=== PATIENT | male | born 1980 | race Caucasian/White ===

== ENCOUNTER 2024-08-31 17:22 | Emergency (ER) | payer BC, SELFPAY ==
--- NOTE | ~2024-08-31 | XR_ITS ---
XR ankle LT min 3V Ordering provider: Judi Liao APRN History: . hit lateral left ankle with golf ball . Comparison: None. FINDINGS: BONES: No acute fracture or dislocation. JOINT SPACES: The ankle mortise is normal. SOFT TISSUES: Soft tissue swelling over the lateral malleolus. Calcaneus spur. Ossification of the insertion of the tendo Achilles. IMPRESSION: No acute osseous abnormality left ankle. Reviewed, dictated and finalized at location A.
[2024-08-31 17:33] VITALS: BP 136/105; PULSE 85; RESP 16; TEMP 36.6; O2SAT 100
--- NOTE | 2024-08-31 17:40 | ED_ITS ---
HPI - Extremity Injury (Lower) General Chief Complaint: Wound/Laceration Stated Complaint: Ankle Pain Time Seen by Provider: 08/31/24 17:31 Source: patient Mode of arrival: ambulatory Limitations: no limitations History of Present Illness HPI Narrative: Patient presents to [facility] with complaints of left ankle pain. He was playing golf and was hit with a golf ball in his left ankle. He currently denies any pain. He has not been taking any medications. Denies any numbness, tingling, or radiation pain. Related Data Home Medications ?Medication ?Instructions ?Recorded ?Confirmed ?Last Taken ?Type amantadine HCl 137 mg 137 mg PO DAILY 08/31/24 08/31/24 Unknown History capsule,extended release 24 hr (Gocovri) carbidopa 25 mg-levodopa 100 mg 1 tablet PO QID PRN tremor(s) 08/31/24 08/31/24 Unknown History tablet foscarbidopa 12 mg-foslevodopa 240 ml continuous subcutaneous infusion 08/31/24 Unknown History mg/mL contin. subcut infusion soln (Vyalev) imiquimod 5 % topical cream packet 1 applic topical HS 08/31/24 08/31/24 Unknown History losartan 25 mg tablet 25 mg PO DAILY 08/31/24 08/31/24 Unknown History Allergies Allergy/AdvReac Type Severity Reaction Status Date / Time cephalexin (From Keflex) Allergy Unknown Verified 08/31/24 17:31 Penicillins Allergy Unknown Verified 08/31/24 17:31 Review of Systems Review of Systems: CONSTITUTIONAL: Denies body aches, fever, chillsEYES: Denies visual changes ENT: Denies rhinorrhea, congestion CARDIOVASCULAR: Denies chest pain, palpitations, or edema. RESPIRATORY: Denies cough or dyspnea. SKIN: Denies rash, itching, or wounds. MUSCULOSKELETAL: reports left ankle pain. NEUROLOGIC: Denies headache, numbness, tingling, or weakness. All systems reviewed & are unremarkable except as noted in HPI and below PMFSH Comments At time of signature, I have reviewed and agree with nursing past medical, surgical, social and family history unless otherwise noted. Please see nursing chart for further information. There is no relevant family history pertinent to the presenting complaint. Exam Narrative: MUSCULOSKELETAL EXAM GENERAL: Well-appearing, well-nourished, and in no acute distress. HEAD: Normocephalic, atraumatic. NECK: Supple. CHEST: Speaks in full sentences. No respiratory distress. HEART: Regular rate and rhythm. Normal and equal peripheral pulses. EXTREMITIES: Left ankle has normal strength and sensation, normal range of motion with flexion/extension/rotation, and no pain with movement. There is edema and ecchymosis, There is point tenderness to left lateral ankle. No open wounds, skin tenting, or obvious deformity; alignment normal, pulse palpable and equal bilaterally, skin warm, dry, pink. Capillary refill less than 3 seconds. Distal sensation intact. SKIN: Warm, dry, no rash. NEURO: Alert and oriented x3. PSYCH: Normal mood and affect Course Course Level of Care: Express Care Visit Vital Signs Vital signs: Vital Signs Temperature 97.9 F 08/31/24 17:33 Pulse Rate 85 08/31/24 17:33 Respiratory Rate 16 08/31/24 17:33 Blood Pressure 136/105 H 08/31/24 17:33 Pulse Oximetry 100 08/31/24 17:33 Temperature 97.9 F 08/31/24 17:33 Pulse Rate 85 08/31/24 17:33 Respiratory Rate 16 08/31/24 17:33 Blood Pressure 136/105 H 08/31/24 17:33 Pulse Oximetry 100 08/31/24 17:33 Reviewed. MDM - Extremity Injury (Lower) MDM Narrative Medical decision making narrative: Discussed physical exam findings and xray. Advised supportive measures and signs/symptoms to go to the ER. Pt is appropriate for outpatient treatment and follow up. Differential Diagnosis Differential diagnosis: Likely ankle sprain and strain and ankle fracture Imaging Data Radiologist's impression: ITS Impressions Ankle X-Ray 08/31/24 18:02 IMPRESSION: No acute osseous abnormality left ankle. Critical Care Time Critical Care Time Critical Care Time: No Discharge Plan Discharge Clinical Impression: Ankle contusion Qualifiers: Encounter type: initial encounter Laterality: left Qualified Code(s): S90.02XA - Contusion of left ankle, initial encounter Patient Disposition: Home Condition: Stable Instructions: Ankle Sprain (DC) Additional Instructions: Rest. Avoid running or excessive walking or anything that worsens the symptoms. Tylenol 1000mg every 8 hours as needed. You can alternate with ibuprofen 600mg Alternate ice/heat to the site. Lidocaine or salon pas pain patch or use pain cream like icy/hot or biofreeze. Follow up with your primary care provider as needed in 1 week Go to the ER for worsening symptoms or concerns Patient Language: [place] Prescriptions: No Action Gocovri 137 mg capsule,extended release 24hr 137 mg PO DAILY carbidopa-levodopa 25-100 mg tablet 1 tablet PO QID PRN (Reason: tremor(s)) Vyalev 12-240 mg/mL solution continuous subcutaneous infusion imiquimod 5 % cream in packet 1 applic TOPICAL HS losartan 25 mg tablet 25 mg PO DAILY Follow-up/Referrals: PHYSICIAN,METAL FABRICATOR WELDER [Primary Care Provider] - Stand Alone Forms: Work/School Release IP Time of Disposition: 17:50
== END 2024-08-31 18:12 | disposition home or self-care (01) ==
DX: S90.02XA Contusion of left ankle, initial encounter (principal); W21.04XA Struck by golf ball, initial encounter; Y93.53 Activity, golf; I10 Essential (primary) hypertension; G20.A1 Parkinson's disease without dyskinesia, without mention of fluctuations
CPT/HCPCS: 73610; 99203; G0463